=== PATIENT | female | born 1955 | race Caucasian/White ===

== ENCOUNTER 2022-01-14 10:40 | Observation (INO) ==
--- NOTE | 2022-01-14 11:26 | DR.DIARMA ---
HPI Time seen Time Seen by Provider: 01/14/22 11:25 PCP Primary Care Physician: SHANNAN FRANKLIN PA-C Complaint Chief Complaint Doctor Comments: diarrhea x 10 days. Has been treated as outpatient with flagyl but has not gotten better. Also, complains of severe cramping in lower abd prior to diarrhea episode. Chief Complaint:: PT C/O SEVERE MUCOUS LIKE DIARRHEA FOR MORE THAN 10 DAY ASSOCIATED WITH SEVERE CRAMPING PAIN ACROSS LOWER ABDOMEN THAT OCCURS JUST PRIOR TO BOWEL MOVEMENTS. DENIES FEVER. PT DID HAVE A FEW EPISODES OF NAUSE AND VOMITING WHEN SYMPTOMS FIRST STARTED BUT DENIES VOMITING IN SEVERAL DAYS. Self Treatment fo Chief Complaint: PT WAS TREATED WITH FLAGYL 500MG PO BID X 10 DAYS AND HAS COMPLETED 6 DAYS OF THIS TREATMENT. PT WAS ALSO TAKING BENTYL AND ZOFRAN NEEDED COVID-19 Coronavirus risk:travel/contact w/high risk person: No Has patient experienced Coronavirus symptoms: No Reviewed Nurses notes reviewed: Yes Source History Provided: Patient Mode of Arrival Mode of Arrival: Ambulatory Timing Onset of Chief Complaint: 01/14/22 PMH PMH Past Medical History: Yes Past Medical History Comment: LUPUS Past Surgical History: Yes Surgical History: Ortho Surgery Family History History of Family Medical Conditions: Yes Family Medical History: Cancer Social History Does patient currently use any type of tobacco product: No Have you used tobacco products in the last 12 months: No Type of Tobacco Use: None Does any household member use tobacco: No Alcohol Use: None Do you use any recreational Drugs:: No Lives With: Spouse Lives Where: Home Travel Risk Coronavirus risk:travel/contact w/high risk person: No Has patient experienced Coronavirus symptoms: No Infectious screening In the last 2 months have you had wt loss of >10#?: NO Have you had fever, night sweats or hemotysis?: No Have you traveled outside the country in the last 6 months?: No Isolation: Standard ROS Review of Systems Constitutional: No Symptoms Reported Eyes: No Symptoms Reported ENTM: No Symptoms Reported Respiratoy: No Symptoms Reported Cardiovascular: No Symptoms Reported Gastrointestinal/Abdominal: See HPI, Abdominal Pain and Diarrhea Genitourinary: No Symptoms Reported Neurological: No Symptoms Reported Musculoskeletal: No Symptoms Reported Integumentary: No Symptoms Reported Hematologic/Lymphatic: No Symptoms Reported Endocrine: No Symptoms Reported Psychiatric: No Symptoms Reported All Other Systems: Reviewed and Negative PE Vital Signs Vitals: Temperature 98.0 F Pulse Rate 107 Respiratory Rate 22 Blood Pressure 119/63 O2 Sat by Pulse Oximetry 98 General Limitations: No Limitations General Appearance: Alert Head Head Exam: Normal Inspection Eyes Eye exam: Normal Appearance ENT ENT Exam: Normal Exam Neck Neck Exam: Normal Inspection Chest Chest Inspection: Normal Inspection Respiratory Respiratory Exam: Normal Lung Sounds Bilat Cardiovascular Cardiovascular Exam: Regular Rate and Normal Rhythm Abdominal Exam Abdominal Exam: Soft, Tenderness and Hyperactive Bowel Sounds Abdominal Tenderness: Suprapubic Rectal Rectal: Deferred Genitourinary Scrotum: Deferred Hernia: Deferred Prostate: Deferred Extremeties Extremities Exam: Normal Inspection Back Back Exam: Normal Inspection Neurologic Neurological Exam: Alert and Oriented X3 Psychiatric Psychiatric Exam: Normal Affect and Normal Mood Skin Skin Exam: Warm, Dry, Intact and Normal Color MDM Differential Diagnosis Differential Diagnosis: Diarrhea Bacterial, Diarrhea Viral, Diverticular disease, Gastroenteritis and Inflammatory BD COURSE Treatment Treatment: Orders completed in ED. Dr. Anaya notified. Discussed case with him and agrees to admit for failed outpatient tx. Reevaluation 1st: Unchanged Consultation Call Returned: 12:59 Consultation Comments: Dr. Anaya Education/Counseling Education/Counseling: Patient and Counseling Educated On: Treatment, Diagnosis and Needs for Follow Up ROR Labs Reviewed Laboratory Results Reviewed?: Yes Result Diagrams: 01/18/22 05:23 01/18/22 05:23 Laboratory: 01/14/22 11:46 Urine,Clean Catch Urine Culture - Final Escherichia Coli Proteus Mirabilis 01/14/22 11:43 Stool Stool Culture - Final 01/14/22 11:43 Stool - Final WBC 11.5 X10^3/uL (3.6-10.0) H 01/14/22 11:11 RBC 5.03 X10^6/uL (3.5-5.4) 01/14/22 11:11 Hgb 13.9 g/dL (12.0-16.0) 01/14/22 11:11 Hct 41.0 % (36.0-47.0) 01/14/22 11:11 MCV 81.5 fL (80.0-100.0) 01/14/22 11:11 MCH 27.7 pg (27.0-34.0) 01/14/22 11:11 MCHC 34.0 g/dL (33.0-35.0) 01/14/22 11:11 RDW 14.8 % (11.6-16.5) 01/14/22 11:11 Plt Count 420 X10^3/uL (150.0-450.0) 01/14/22 11:11 MPV 8.6 fL (7.4-11.0) 01/14/22 11:11 Neut % (Auto) 73.7 % (42.0-75.0) 01/14/22 11:11 Lymph % (Auto) 18.1 % (21.0-51.0) L 01/14/22 11:11 [place] % (Auto) 6.9 % (0.0-13.0) 01/14/22 11:11 Eos % (Auto) 1.0 % (0.9-2.9) 01/14/22 11:11 Baso % (Auto) 0.3 % (0.2-1.0) 01/14/22 11:11 Neut # (Auto) 8.5 x10^3/uL (2.2-4.8) H 01/14/22 11:11 Lymph # (Auto) 2.1 X10^3/uL (1.3-2.9) 01/14/22 11:11 [place] # (Auto) 0.8 x10^3/uL (0.3-0.8) 01/14/22 11:11 Eos # (Auto) 0.1 x10^3/uL (0.0-0.2) 01/14/22 11:11 Baso # (Auto) 0.0 X10^3/uL (0.0-0.1) 01/14/22 11:11 Absolute Nucleated RBC 0.1 /100WBC 01/14/22 11:11 Sodium 138 mmol/L (136-145) 01/14/22 11:11 Corrected Sodium TNP 01/14/22 11:11 Potassium 2.3 mmol/L (3.5-5.1) L* 01/14/22 11:11 Chloride 99 mmol/L (98-107) 01/14/22 11:11 Carbon Dioxide 31.0 mmol/L (21-32) 01/14/22 11:11 BUN 7 mg/dL (7-18) 01/14/22 11:11 Creatinine 0.80 mg/dL (0.55-1.02) 01/14/22 11:11 Est GFR (MDRD) Af Amer > 60 (>60) 01/14/22 11:11 Est GFR (MDRD) Non-Af > 60 (>60) 01/14/22 11:11 Glucose 110 mg/dL (65-99) H 01/14/22 11:11 Calcium 8.4 mg/dL (8.5-10.1) L 01/14/22 11:11 Corrected Calcium 9.4 mg/dL (8.5-10.1) 01/14/22 11:11 Magnesium 1.8 mg/dL (1.7-2.9) 01/14/22 11:11 Total Bilirubin 0.50 mg/dL (0.2-1.0) 01/14/22 11:11 AST 30 Units/L (15-37) 01/14/22 11:11 ALT 22 Units/L (12-78) 01/14/22 11:11 Alkaline Phosphatase 109 Units/L (46-116) 01/14/22 11:11 Total Protein 7.3 g/dL (6.4-8.2) 01/14/22 11:11 Albumin 2.8 g/dL (3.4-5.0) L 01/14/22 11:11 Globulin 4.5 g/dL (2.5-4.5) 01/14/22 11:11 Albumin/Globulin Ratio 0.6 Ratio (1.1-2.1) L 01/14/22 11:11 Amylase 53 Units/L (25-115) 01/14/22 11:11 Lipase 222 Units/L (73-393) 01/14/22 11:11 Specimen Type Clean catch urine 01/14/22 11:46 Urine Color Dark yellow (YELLOW) 01/14/22 11:46 Urine Appearance Clear (CLEAR) 01/14/22 11:46 Urine pH 6.0 (5.0 - 8.0) 01/14/22 11:46 Ur Specific [place] 1.030 (1.000-1.030) 01/14/22 11:46 Urine Protein 2+ (NEGATIVE) 01/14/22 11:46 Urine Glucose (UA) Negative (NEGATIVE) 01/14/22 11:46 Urine Ketones 2+ (NEGATIVE) 01/14/22 11:46 Urine Blood 1+ (NEGATIVE) 01/14/22 11:46 Urine Nitrite Positive (NEGATIVE) 01/14/22 11:46 Urine Bilirubin 1+ (NEGATIVE) 01/14/22 11:46 Urine Urobilinogen 1+ (NORMAL) 01/14/22 11:46 Ur Leukocyte Esterase 3+ (NEGATIVE) 01/14/22 11:46 Urine RBC 0-2 /HPF (0-3) 01/14/22 11:46 Urine WBC 3-5 /HPF (0-5) 01/14/22 11:46 Ur Squamous Epith Cells Few /HPF (NEGATIVE) 01/14/22 11:46 Ur Transition Epith Cell Few /HPF (NEGATIVE) 01/14/22 11:46 Urine Bacteria Trace /HPF (NEGATIVE) 01/14/22 11:46 Hyaline Casts Few /LPF (NEGATIVE) 01/14/22 11:46 Urine Mucus Few /HPF (NEGATIVE) 01/14/22 11:46 Ur Culture Indicated? No/not indicated 01/14/22 11:46 Stool Description 15 grams 01/14/22 11:43 Stool Description 15 grams 01/14/22 11:43 Stl Occult Blood (IFOB) Positive (NEGATIVE) A 01/14/22 11:43 Stool for White Cells Positive (NEGATIVE) A 01/14/22 11:43 Stl C. diff Tox B Gene Negative (NEGATIVE) 01/14/22 11:43 Stl C. diff [id number] Presumptive negative (NEGATIVE) 01/14/22 11:43 Stool H. pylori Ag Negative (NEGATIVE) 01/14/22 11:43 SARS-CoV-2 (PCR) Positive (NEGATIVE) A 01/14/22 11:34 Cryptosporid parvum Ag Negative (NEGATIVE) 01/14/22 11:43 Giardia lamblia Ag Negative (NEGATIVE) 01/14/22 11:43 Influenza Type A (PCR) Negative (NEGATIVE) 01/14/22 11:34 Influenza Type B (PCR) Negative (NEGATIVE) 01/14/22 11:34 RSV (PCR) Negative (NEGATIVE) 01/14/22 11:34 Other Results Comments: Pt is noted to be Covid positive XRAY XRAY Interpreted by: Radiologist X-ray Results: Name: ELBERT STANTON : 1955 Sex: F Location: ER Order Number(s): [id number] Procedure(s):ABDOMEN/PELVIS W/O CON Ordering Physician: PRIYANKA GARIBAY Primary Care: Hernandez Cardozo Service Date: 01/14/22 Service Time: 1134 HISTORY LOWER ABDOMINAL PAIN STUDY ABDOMEN/PELVIS W/O CON COMPARISON TECHNIQUE Multiple axial images of the abdomen and pelvis were obtained from the lung bases to the pubic symphysis without the administration of IV contrast. Dose reduction techniques including Automated Exposure Control (AEC) and adjustment of mA and kV were utilized. FINDINGS Bases are clear without effusion. Size is normal. The liver and spleen are normal. There are questionably some stones in the gallbladder but no evidence for cholecystitis. Pancreas is somewhat atrophic. Adrenal glands are normal. Kidneys are both normal in size. There is a 4 mm nonobstructing stone in the upper pole of the right kidney. There is no stone on the left side and there is no hydronephrosis on either side. The urinary bladder is normal. There is a small hiatal hernia and the stomach is otherwise unremarkable. The small bowel loops are normal. The appendix is not visualized. The colon is quite redundant with the cecum extending over to the left lower quadrant. The right colon is quite filled and distended with stool raising concern for constipation. There is diverticular disease in the descending and sigmoid colon and there is some wall thickening throughout the sigmoid suggestive of diffuse diverticular may haynes. There is no abscess or free air. The uterus has been removed and there is no adnexal mass. There is scoliosis and degeneration in the spine and in the hips but there are no worrisome bone marrow lesions. IMPRESSION 1. There is diverticulosis in the distal colon and there is some nonspecific diffuse wall thickening in the sigmoid suggestive of low-grade diverticulitis. 2. There is a 4 mm nonobstructing stone in the right kidney. 3. Small hiatal hernia. 4. Possible cholelithiasis. Electronically signed by: Jeramy Singh (Jan 14, 2022 12:29:40) Report Electronically signed: 01/14/22 1231 CC: Priyanka Garibay EKG Rate: 69 [place]: Normal Rhythm: NSR Opioid Opioid Risk Tool Age (Evan box if 16-45): No History of Preadolescent Sexual Abuse: No Total: 0 Total Score Risk Category: Low Risk Copyright: Stanton ZELAYA predicting aberrant behaviors Discharge Plan Diagnosis Discharge Problem: Diverticulitis, Nausea vomiting and diarrhea, Infectious diarrhea in adult patient Discharge Plan Patient Disposition: 09 ADMITTED INPATIENT Condition: Stable Orders to Discharge Patient Discharge Orders: Discharge (Routine); Ordered 01/18/22 Ordered By: Marciano Anaya
[2022-01-14] MEDS ORDERED: NS 1,000 ML IV 1,000 ML IV ONE (11:33)
[2022-01-14] MEDS ORDERED: NS 1,000 ML IV 1,000 ML ONE (11:34)
[2022-01-14 11:44] LABS: BASOPHILS % (AUTO) 0.3 % (0.2-1.0); EOSINOPHILS # (AUTO) 0.1 x10^3/uL (0.0-0.2); HEMOGLOBIN 13.9 g/dL (12.0-16.0); LYMPHOCYTES # (AUTO) 2.1 X10^3/uL (1.3-2.9); LYMPHOCYTES % (AUTO) 18.1 % (21.0-51.0); MEAN CORPUSCULAR HEMOGLOBIN 27.7 pg (27.0-34.0); MEAN CORPUSCULAR VOLUME 81.5 fL (80.0-100.0); MEAN PLATELET VOLUME 8.6 fL (7.4-11.0); MONOCYTES # (AUTO) 0.8 x10^3/uL (0.3-0.8); MONOCYTES % (AUTO) 6.9 % (0.0-13.0); NEUTROPHILS # (AUTO) 8.5 x10^3/uL (2.2-4.8); NEUTROPHILS % (AUTO) 73.7 % (42.0-75.0); RED BLOOD COUNT 5.03 X10^6/uL (3.5-5.4); RED CELL DISTRIBUTION WIDTH 14.8 % (11.6-16.5); WHITE BLOOD COUNT 11.5 X10^3/uL (3.6-10.0)
[2022-01-14 11:53] LABS: ALANINE AMINOTRANSFERASE 22 Units/L (12-78); ALBUMIN 2.8 g/dL (3.4-5.0); ALKALINE PHOSPHATASE 109 Units/L (46-116); ASPARTATE AMINO TRANSFERASE 30 Units/L (15-37); BLOOD UREA NITROGEN 7 mg/dL (7-18); CALCIUM 8.4 mg/dL (8.5-10.1); CHLORIDE 99 mmol/L (98-107); COR CA(FOR HYPOALB) 9.4 mg/dL (8.5-10.1); SODIUM 138 mmol/L (136-145); TOTAL PROTEIN 7.3 g/dL (6.4-8.2); eGFR NON BLACK RACES > 60 (>60)
[2022-01-14 11:58] LABS: AMYLASE 53 Units/L (25-115); LIPASE 222 Units/L (73-393)
[2022-01-14 12:10] LABS: BILIRUBIN,URINE 1+ (NEGATIVE); BLOOD/HEMOGLOBIN,URINE 1+ (NEGATIVE); GLUCOSE, URINE NEGATIVE (NEGATIVE); KETONES,URINE 2+ (NEGATIVE); LEUKOCYTE ESTERASE ,URINE 3+ (NEGATIVE); NITRITES,URINE POSITIVE (NEGATIVE); PROTEIN,URINE 2+ (NEGATIVE); UROBILINOGEN,URINE 1+ (NORMAL)
[2022-01-14 12:24] LABS: APPEARANCE,URINE CLEAR (CLEAR); COLOR,URINE DARK YELLOW (YELLOW)
--- NOTE | 2022-01-14 12:31 | CT ---
HISTORYLOWER ABDOMINAL PAINSTUDYABDOMEN/PELVIS W/O CONCOMPARISONTECHNIQUEMultiple axial images of the abdomen and pelvis were obtained from the lung bases to the pubic symphysis without the administration of IV contrast. Dose reduction techniques including Automated Exposure Control (AEC) and adjustment of mA and kV were utilized.FINDINGSBases are clear without effusion. Size is normal. The liver and spleen are normal. There are questionably some stones in the gallbladder but no evidence for cholecystitis. Pancreas is somewhat atrophic. Adrenal glands are normal. Kidneys are both normal in size. There is a 4 mm nonobstructing stone in the upper pole of the right kidney. There is no stone on the left side and there is no hydronephrosis on either side. The urinary bladder is normal. There is a small hiatal hernia and the stomach is otherwise unremarkable. The small bowel loops are normal. The appendix is not visualized. The colon is quite redundant with the cecum extending over to the left lower quadrant. The right colon is quite filled and distended with stool raising concern for constipation. There is diverticular disease in the descending and sigmoid colon and there is some wall thickening throughout the sigmoid suggestive of diffuse diverticular may haynes. There is no abscess or free air. The uterus has been removed and there is no adnexal mass. There is scoliosis and degeneration in the spine and in the hips but there are no worrisome bone marrow lesions.IMPRESSION1. There is diverticulosis in the distal colon and there is some nonspecific diffuse wall thickening in the sigmoid suggestive of low-grade diverticulitis.2. There is a 4 mm nonobstructing stone in the right kidney.3. Small hiatal hernia.4. Possible cholelithiasis.Electronically signed by: Jeramy Singh (Jan 14, 2022 12:29:40)
[2022-01-14 12:36] LABS: RBC,URINE 0-2 /HPF (0-3); SQUAMOUS EPITHELIAL CELL,UR FEW /HPF (NEGATIVE)
[2022-01-14 12:37] LABS: BACTERIA,URINE TRACE /HPF (NEGATIVE); HYALINE CASTS, URINE FEW /LPF (NEGATIVE); TRANSITIONAL EPI CELLS,URINE FEW /HPF (NEGATIVE)
[2022-01-14] MEDS ORDERED: NS 1/2 + KCL 20 MEQ/L 1,000 ML IV ONE (13:23)
[2022-01-14] MEDS ORDERED: FLAGYL TAB 250 MG PO ONE (13:24)
[2022-01-14] MEDS ORDERED: NS + KCL 20 MEQ/L 1,000 ML IV ONE (13:25)
[2022-01-14] MEDS: FLAGYL TAB 500 MG PO SCH ×2 (13:32→21:01)
[2022-01-14 13:40] LABS: CRYPTOSPORIDIUM PARVUM ANTIGEN NEGATIVE (NEGATIVE); GIARDIA LAMBLIA ANTIGEN NEGATIVE (NEGATIVE)
[2022-01-14 15:11] VITALS: BMI 37.1
[2022-01-14] MEDS ORDERED: MORPHINE SULFATE INJ 2 MG INJ IVP PRN (15:11)
[2022-01-14] MEDS ORDERED: ZOFRAN INJ 4 MG VIAL IVP PRN (15:11)
[2022-01-14] MEDS ORDERED: MICRO K EXTEN CAP 10 MEQ PO PRN (16:27)
[2022-01-14] MEDS ORDERED: KLOR-CON PO PRN (16:27)
[2022-01-14] MEDS ORDERED: K-RIDER 10 MEQ/NS 100 ML 10 MEQ/100 ML BAG IV PRN (16:27)
[2022-01-14] MEDS: NS + KCL 20 MEQ/L 1,000 ML IV SCH (18:18)
[2022-01-14] MEDS: MAGNESIUM SULFATE 1 GRAM/100 mL PREMIX 1 G/100 ML BAG IV PRN ×2 (18:18→20:27)
[2022-01-14] MEDS: K-DUR TAB 20 MEQ PO PRN (18:18)
[2022-01-14] MEDS: CIPRO IV 200 MG PREMIX* 200 MG/100 ML BAG IV SCH (21:38)
[2022-01-15] MEDS: NS + KCL 20 MEQ/L 1,000 ML IV SCH (02:00)
[2022-01-15] MEDS ORDERED: CATAPRES TAB 0.1 MG PO ONE (04:17)
[2022-01-15] MEDS: FLAGYL TAB 500 MG PO SCH ×3 (05:38→21:07)
[2022-01-15 05:59] LABS: BASOPHILS % (AUTO) 0.3 % (0.2-1.0); EOSINOPHILS # (AUTO) 0.1 x10^3/uL (0.0-0.2); EOSINOPHILS % (AUTO) 0.6 % (0.9-2.9); HEMATOCRIT 37.7 % (36.0-47.0); HEMOGLOBIN 12.6 g/dL (12.0-16.0); LYMPHOCYTES # (AUTO) 1.7 X10^3/uL (1.3-2.9); LYMPHOCYTES % (AUTO) 16.5 % (21.0-51.0); MEAN CORPUSCULAR HEMOGLOBIN 27.1 pg (27.0-34.0); MEAN CORPUSCULAR HGB CONC 33.3 g/dL (33.0-35.0); MEAN CORPUSCULAR VOLUME 81.3 fL (80.0-100.0); MEAN PLATELET VOLUME 8.5 fL (7.4-11.0); MONOCYTES # (AUTO) 0.9 x10^3/uL (0.3-0.8); MONOCYTES % (AUTO) 8.8 % (0.0-13.0); NEUTROPHILS # (AUTO) 7.4 x10^3/uL (2.2-4.8); NEUTROPHILS % (AUTO) 73.8 % (42.0-75.0); RED BLOOD COUNT 4.64 X10^6/uL (3.5-5.4); WHITE BLOOD COUNT 10.1 X10^3/uL (3.6-10.0)
[2022-01-15 06:12] LABS: ALANINE AMINOTRANSFERASE 18 Units/L (12-78); ALBUMIN 2.4 g/dL (3.4-5.0); ALKALINE PHOSPHATASE 92 Units/L (46-116); ASPARTATE AMINO TRANSFERASE 27 Units/L (15-37); BLOOD UREA NITROGEN 5 mg/dL (7-18); CALCIUM 7.9 mg/dL (8.5-10.1); CARBON DIOXIDE 26.9 mmol/L (21-32); CHLORIDE 102 mmol/L (98-107); COR CA(FOR HYPOALB) 9.2 mg/dL (8.5-10.1); CREATININE 0.54 mg/dL (0.55-1.02); SODIUM 139 mmol/L (136-145); TOTAL PROTEIN 6.3 g/dL (6.4-8.2); eGFR NON BLACK RACES > 60 (>60)
[2022-01-15] MEDS: K-DUR TAB 20 MEQ PO PRN ×2 (06:30→23:15)
[2022-01-15] MEDS: CIPRO IV 200 MG PREMIX* 200 MG/100 ML BAG IV SCH (09:13)
[2022-01-15] MEDS: NS + KCL 40 MEQ/L 1,000 ML IV SCH ×3 (11:01→20:32)
[2022-01-15] MEDS: LOVENOX INJ 40 MG SYR SC SCH (11:01)
--- NOTE | 2022-01-15 11:04 | DR.H&P ---
H&P History & Physical for Day of: H&P Date: 01/15/22 Chief Complaint Chief Complaint: abdominal pain, N/V/D Allergies Allergies Allergy/AdvReac Type Severity Reaction Status Date / Time codeine Allergy Verified 01/14/22 10:58 History of Present Illness History of Present Illness: Ms Xiao is a 66y/o female with a PMH of Lupus and osteoporosis presents with worsening abdominal cramps associated with nausea, vomiting and diarrhea for the past 10 days. Patient reports poor oral intake since then. She has bee having watery stools with no blood. Denies hx of abdomin al problems in the past, no colonoscopy. In the ER, CTAP showed low grade diverticulitis. UA suggestive of infection. Her potassium was noted to be low. She was started on IV Cipro and Flagyl along with hydration and potassium replacement. She states she feels better this morning. She has been able to tolerate liquids. Labs/imaging reviewed: K-2.9 Mg 2.2 FOBT + Fecal WBC + Urine cx: gram (-) rods Stool Cx: negative Plan: will change IVF to NS with 40 KCl, continue potassium protocol and monitoring. Continue Cipro and Flagyl. Continue anti-emetics. Advance diet as tolerated. Follow urine Cx. Encouraged to ambulate as tolerated. Monitor AM labs. Past Surgical History Surgical History: Ortho Surgery Family History Family Medical History: Cancer Social History Does patient currently use any type of tobacco product: No Have you used tobacco products in the last 12 months: No Type of Tobacco Use: None Does any household member use tobacco: No Alcohol Use: None Drug Use: None Medications Home Medications: codeine Allergy (Verified 01/14/22 10:58) CONTINUE taking the following medications cholecalciferol (vitamin D3) 25 mcg (1,000 unit) tablet 25 mcg PO DAILY 01/14/22 [History] dicyclomine 10 mg capsule 10 mg PO Q4H PRN 01/14/22 [History] hydroxychloroquine 200 mg tablet 300 mg PO DAILY 01/14/22 [History] ibandronate 150 mg tablet See Rx Instructions .Route .COMPLEX 01/14/22 [History] meloxicam 15 mg tablet 15 mg PO DAILY 01/14/22 [History] metronidazole 500 mg tablet 500 mg PO BID 01/14/22 [History] ondansetron 8 mg disintegrating tablet 8 mg PO Q8H PRN 01/14/22 [History] tirzepatide 2.5 mg/0.5 mL subcutaneous pen injector ([place]) See Rx Instructions .Route .COMPLEX 01/14/22 [History] Labs Result Diagrams: 01/15/22 05:09 01/15/22 09:40 Labs: 01/14/22 11:46 Urine,Clean Catch Urine Culture - Preliminary 01/14/22 11:43 Stool Stool Culture - Preliminary 01/14/22 11:43 Stool - Final Laboratory WBC 10.1 X10^3/uL (3.6-10.0) H 01/15/22 05:09 RBC 4.64 X10^6/uL (3.5-5.4) 01/15/22 05:09 Hgb 12.6 g/dL (12.0-16.0) 01/15/22 05:09 Hct 37.7 % (36.0-47.0) 01/15/22 05:09 MCV 81.3 fL (80.0-100.0) 01/15/22 05:09 MCH 27.1 pg (27.0-34.0) 01/15/22 05:09 MCHC 33.3 g/dL (33.0-35.0) 01/15/22 05:09 RDW 15.0 % (11.6-16.5) 01/15/22 05:09 Plt Count 358 X10^3/uL (150.0-450.0) 01/15/22 05:09 MPV 8.5 fL (7.4-11.0) 01/15/22 05:09 Neut % (Auto) 73.8 % (42.0-75.0) 01/15/22 05:09 Lymph % (Auto) 16.5 % (21.0-51.0) L 01/15/22 05:09 [place] % (Auto) 8.8 % (0.0-13.0) 01/15/22 05:09 Eos % (Auto) 0.6 % (0.9-2.9) L 01/15/22 05:09 Baso % (Auto) 0.3 % (0.2-1.0) 01/15/22 05:09 Neut # (Auto) 7.4 x10^3/uL (2.2-4.8) H 01/15/22 05:09 Lymph # (Auto) 1.7 X10^3/uL (1.3-2.9) 01/15/22 05:09 [place] # (Auto) 0.9 x10^3/uL (0.3-0.8) H 01/15/22 05:09 Eos # (Auto) 0.1 x10^3/uL (0.0-0.2) 01/15/22 05:09 Baso # (Auto) 0.0 X10^3/uL (0.0-0.1) 01/15/22 05:09 Absolute Nucleated RBC 0.0 /100WBC 01/15/22 05:09 Sodium 139 mmol/L (136-145) 01/15/22 05:09 Corrected Sodium TNP 01/15/22 05:09 Potassium 2.9 mmol/L (3.5-5.1) L* 01/15/22 09:40 Chloride 102 mmol/L (98-107) 01/15/22 05:09 Carbon Dioxide 26.9 mmol/L (21-32) 01/15/22 05:09 BUN 5 mg/dL (7-18) L 01/15/22 05:09 Creatinine 0.54 mg/dL (0.55-1.02) L 01/15/22 05:09 Est GFR (MDRD) Af Amer > 60 (>60) 01/15/22 05:09 Est GFR (MDRD) Non-Af > 60 (>60) 01/15/22 05:09 Glucose 95 mg/dL (65-99) 01/15/22 05:09 Calcium 7.9 mg/dL (8.5-10.1) L 01/15/22 05:09 Corrected Calcium 9.2 mg/dL (8.5-10.1) 01/15/22 05:09 Magnesium 2.2 mg/dL (1.7-2.9) 01/15/22 05:09 Total Bilirubin 0.40 mg/dL (0.2-1.0) 01/15/22 05:09 AST 27 Units/L (15-37) 01/15/22 05:09 ALT 18 Units/L (12-78) 01/15/22 05:09 Alkaline Phosphatase 92 Units/L (46-116) 01/15/22 05:09 Total Protein 6.3 g/dL (6.4-8.2) L 01/15/22 05:09 Albumin 2.4 g/dL (3.4-5.0) L 01/15/22 05:09 Globulin 3.9 g/dL (2.5-4.5) 01/15/22 05:09 Albumin/Globulin Ratio 0.6 Ratio (1.1-2.1) L 01/15/22 05:09 Amylase 53 Units/L (25-115) 01/14/22 11:11 Lipase 222 Units/L (73-393) 01/14/22 11:11 Specimen Type Clean catch urine 01/14/22 11:46 Urine Color Dark yellow (YELLOW) 01/14/22 11:46 Urine Appearance Clear (CLEAR) 01/14/22 11:46 Urine pH 6.0 (5.0 - 8.0) 01/14/22 11:46 Ur Specific [place] 1.030 (1.000-1.030) 01/14/22 11:46 Urine Protein 2+ (NEGATIVE) 01/14/22 11:46 Urine Glucose (UA) Negative (NEGATIVE) 01/14/22 11:46 Urine Ketones 2+ (NEGATIVE) 01/14/22 11:46 Urine Blood 1+ (NEGATIVE) 01/14/22 11:46 Urine Nitrite Positive (NEGATIVE) 01/14/22 11:46 Urine Bilirubin 1+ (NEGATIVE) 01/14/22 11:46 Urine Urobilinogen 1+ (NORMAL) 01/14/22 11:46 Ur Leukocyte Esterase 3+ (NEGATIVE) 01/14/22 11:46 Urine RBC 0-2 /HPF (0-3) 01/14/22 11:46 Urine WBC 3-5 /HPF (0-5) 01/14/22 11:46 Ur Squamous Epith Cells Few /HPF (NEGATIVE) 01/14/22 11:46 Ur Transition Epith Cell Few /HPF (NEGATIVE) 01/14/22 11:46 Urine Bacteria Trace /HPF (NEGATIVE) 01/14/22 11:46 Hyaline Casts Few /LPF (NEGATIVE) 01/14/22 11:46 Urine Mucus Few /HPF (NEGATIVE) 01/14/22 11:46 Ur Culture Indicated? No/not indicated 01/14/22 11:46 Stool Description 15 grams 01/14/22 11:43 Stool Description 15 grams 01/14/22 11:43 Stl Occult Blood (IFOB) Positive (NEGATIVE) A 01/14/22 11:43 Stool for White Cells Positive (NEGATIVE) A 01/14/22 11:43 Stl C. diff Tox B Gene Negative (NEGATIVE) 01/14/22 11:43 Stl C. diff [id number] Presumptive negative (NEGATIVE) 01/14/22 11:43 Stool H. pylori Ag Negative (NEGATIVE) 01/14/22 11:43 SARS-CoV-2 (PCR) Positive (NEGATIVE) A 01/14/22 11:34 Cryptosporid parvum Ag Negative (NEGATIVE) 01/14/22 11:43 Giardia lamblia Ag Negative (NEGATIVE) 01/14/22 11:43 Influenza Type A (PCR) Negative (NEGATIVE) 01/14/22 11:34 Influenza Type B (PCR) Negative (NEGATIVE) 01/14/22 11:34 RSV (PCR) Negative (NEGATIVE) 01/14/22 11:34 Review of Systems Constitutional: No Symptoms Reported Eyes: No Symptoms Reported ENT: No Symptoms Reported Respiratory: No Symptoms Reported Cardiovascular: No Symptoms Reported Gastrointestinal: Nausea, Vomiting, Abdominal Pain and Diarrhea Genitourinary: No Symptoms Reported Musculoskeletal: No Symptoms Reported Skin: No Symptoms Reported Neurological: No Symptoms Reported Physical Exam Vital Signs: Temperature 99.4 F Pulse Rate [Left Brachial] 68 Pulse Rate 107 Respiratory Rate 20 Blood Pressure [Left Arm] 142/78 Blood Pressure 119/63 O2 Sat by Pulse Oximetry 96 Oriented: Normal Eyes: Normal Ear: Normal Nose: Normal Throat: Normal Respiratory: Clear Throughout Cardiovascular: Normal Auscultation: Bowel Sounds: Increased Tenderness: Epigastric, Periumbilical and Mild Skin: Decreased [place] Musculoskeletal: Normal Psychiatric: Normal Mood Description: Calm and Appropriate Affect: Normal Speech Pattern: Clear and Appropriate Assessment/Plan (1) Diverticulitis: Status: Acute (2) Hypokalemia: Status: Acute (3) Dehydration: Status: Acute (4) Generalized weakness: Status: Acute (5) Nausea vomiting and diarrhea: Status: Acute (6) Urinary tract infection: Status: Acute (7) Lupus: Status: Acute Review H&P Reviewed: Yes Patient was examined?: Yes
[2022-01-15] MEDS: CIPRO IV 400 MG PREMIX* 400 MG/200 ML IV.SOLN. IV SCH (20:34)
[2022-01-16] MEDS: NS + KCL 40 MEQ/L 1,000 ML IV SCH ×3 (04:54→17:17)
[2022-01-16] MEDS: FLAGYL TAB 500 MG PO SCH ×3 (05:24→21:16)
[2022-01-16 06:35] LABS: BASOPHILS # (AUTO) 0.1 X10^3/uL (0.0-0.1); BASOPHILS % (AUTO) 0.4 % (0.2-1.0); EOSINOPHILS # (AUTO) 0.1 x10^3/uL (0.0-0.2); EOSINOPHILS % (AUTO) 0.8 % (0.9-2.9); HEMATOCRIT 36.6 % (36.0-47.0); HEMOGLOBIN 12.3 g/dL (12.0-16.0); LYMPHOCYTES # (AUTO) 1.7 X10^3/uL (1.3-2.9); LYMPHOCYTES % (AUTO) 13.3 % (21.0-51.0); MEAN CORPUSCULAR HEMOGLOBIN 27.2 pg (27.0-34.0); MEAN CORPUSCULAR HGB CONC 33.6 g/dL (33.0-35.0); MEAN CORPUSCULAR VOLUME 80.9 fL (80.0-100.0); MEAN PLATELET VOLUME 8.9 fL (7.4-11.0); MONOCYTES % (AUTO) 7.6 % (0.0-13.0); NEUTROPHILS # (AUTO) 9.9 x10^3/uL (2.2-4.8); NEUTROPHILS % (AUTO) 77.9 % (42.0-75.0); RED BLOOD COUNT 4.53 X10^6/uL (3.5-5.4); RED CELL DISTRIBUTION WIDTH 15.1 % (11.6-16.5); WHITE BLOOD COUNT 12.8 X10^3/uL (3.6-10.0)
[2022-01-16 06:46] LABS: ALANINE AMINOTRANSFERASE 19 Units/L (12-78); ALBUMIN 2.4 g/dL (3.4-5.0); ALKALINE PHOSPHATASE 95 Units/L (46-116); ASPARTATE AMINO TRANSFERASE 26 Units/L (15-37); BLOOD UREA NITROGEN 3 mg/dL (7-18); CALCIUM 7.9 mg/dL (8.5-10.1); CARBON DIOXIDE 27.4 mmol/L (21-32); CHLORIDE 103 mmol/L (98-107); COR CA(FOR HYPOALB) 9.2 mg/dL (8.5-10.1); CREATININE 0.56 mg/dL (0.55-1.02); MAGNESIUM 1.7 mg/dL (1.7-2.9); SODIUM 138 mmol/L (136-145); TOTAL PROTEIN 6.2 g/dL (6.4-8.2); eGFR NON BLACK RACES > 60 (>60)
[2022-01-16 07:30] LABS: PLATELET MORPHOLOGY COMMENT NORMAL (NORMAL)
[2022-01-16] MEDS: CIPRO IV 400 MG PREMIX* 400 MG/200 ML IV.SOLN. IV SCH ×2 (08:37→20:30)
[2022-01-16] MEDS: LOVENOX INJ 40 MG SYR SC SCH (08:37)
--- NOTE | 2022-01-16 09:14 | PCM.PROG ---
Progress Note Progress Note for Day of Date of Exam: 01/16/22 Subjective Subjective: Pt is a 66 y/o female with a PMH of Lupus and osteoporosis admitted for low grade diverticulitis shown on CTAP and acute cystitis. This morning patient reports feeling a little better. No acute events overnight. Her potassium has responded to IVF and supplementation. She is currently on anti biotics: IV Cipro and Flagyl. She has been able to tolerate liquids. Labs/imaging reviewed: Wbc 12.8, Hgb 12.3, Plt 369, Na 138, K 3.8, Creatinine 0.56, Glucose 96 Urine cx: gram (-) rods Stool Cx: negative Plan: Will continue with current treatment plan of IVF to NS with 40 KCl, contin ue potassium protocol and monitoring. Continue Cipro and Flagyl. Continue anti- emetics. Advance diet as tolerated. Follow urine Cx. Encouraged to ambulate as tolerated. Monitor AM labs. Past Medical Family Social History Allergies: Allergies codeine Allergy (Verified 01/14/22 10:58) Review of Systems ROS: No change since H&P Vital Signs and I&O's Vital Signs: Temperature 99.0 F Pulse Rate [Left Brachial] 96 Pulse Rate 107 Respiratory Rate 20 Blood Pressure [Left Arm] 156/86 Blood Pressure 119/63 O2 Sat by Pulse Oximetry 98 Intake and Output: Intake & Output 01/13/22 01/14/22 01/15/22 01/16/22 23:59 23:59 23:59 23:59 Intake Total 796 / 796 4090 / 4090 1340 / 1340 Balance 796 / 796 4090 / 4090 1340 / 1340 Physical Exam Oriented: Normal Eyes: Normal Ear: Normal Nose: Normal Throat: Normal Cardiovascular: Normal Auscultation: Bowel Sounds: Increased Tenderness: Epigastric, Periumbilical and Mild Skin: Decreased [place]urgur Musculoskeletal: Normal Psychiatric: Normal Mood Description: Calm and Appropriate Affect: Normal Speech Pattern: Clear and Appropriate Laboratory and Diagnostics Result Diagrams: 01/16/22 05:28 01/16/22 05:28 Labs: 01/14/22 11:46 Urine,Clean Catch Urine Culture - Preliminary 01/14/22 11:43 Stool Stool Culture - Preliminary 01/14/22 11:43 Stool - Final Laboratory WBC 12.8 X10^3/uL (3.6-10.0) H 01/16/22 05:28 RBC 4.53 X10^6/uL (3.5-5.4) 01/16/22 05:28 Hgb 12.3 g/dL (12.0-16.0) 01/16/22 05:28 Hct 36.6 % (36.0-47.0) 01/16/22 05:28 MCV 80.9 fL (80.0-100.0) 01/16/22 05:28 MCH 27.2 pg (27.0-34.0) 01/16/22 05:28 MCHC 33.6 g/dL (33.0-35.0) 01/16/22 05:28 RDW 15.1 % (11.6-16.5) 01/16/22 05:28 Plt Count 369 X10^3/uL (150.0-450.0) 01/16/22 05:28 Plt Count Comment Adequate (ADEQUATE) 01/16/22 05:28 MPV 8.9 fL (7.4-11.0) 01/16/22 05:28 Neut % (Auto) 77.9 % (42.0-75.0) H 01/16/22 05:28 Lymph % (Auto) 13.3 % (21.0-51.0) L 01/16/22 05:28 [place] % (Auto) 7.6 % (0.0-13.0) 01/16/22 05:28 Eos % (Auto) 0.8 % (0.9-2.9) L 01/16/22 05:28 Baso % (Auto) 0.4 % (0.2-1.0) 01/16/22 05:28 Neut # (Auto) 9.9 x10^3/uL (2.2-4.8) H 01/16/22 05:28 Lymph # (Auto) 1.7 X10^3/uL (1.3-2.9) 01/16/22 05:28 [place] # (Auto) 1.0 x10^3/uL (0.3-0.8) H 01/16/22 05:28 Eos # (Auto) 0.1 x10^3/uL (0.0-0.2) 01/16/22 05:28 Baso # (Auto) 0.1 X10^3/uL (0.0-0.1) 01/16/22 05:28 Absolute Nucleated RBC 0.1 /100WBC 01/16/22 05:28 Total Counted 100 01/16/22 05:28 Neutrophils % (Manual) 69 % (39-76) 01/16/22 05:28 Lymphocytes % (Manual) 21 % (13-43) 01/16/22 05:28 Monocytes % (Manual) 6 % (4-9) 01/16/22 05:28 Eosinophils % (Manual) 4 % (0-6) 01/16/22 05:28 Plt Morphology Comment Normal (NORMAL) 01/16/22 05:28 RBC Morphology Normal (NORMAL) 01/16/22 05:28 Sodium 138 mmol/L (136-145) 01/16/22 05:28 Corrected Sodium TNP 01/16/22 05:28 Potassium 3.8 mmol/L (3.5-5.1) 01/16/22 05:28 Chloride 103 mmol/L (98-107) 01/16/22 05:28 Carbon Dioxide 27.4 mmol/L (21-32) 01/16/22 05:28 BUN 3 mg/dL (7-18) L 01/16/22 05:28 Creatinine 0.56 mg/dL (0.55-1.02) 01/16/22 05:28 Est GFR (MDRD) Af Amer > 60 (>60) 01/16/22 05:28 Est GFR (MDRD) Non-Af > 60 (>60) 01/16/22 05:28 Glucose 96 mg/dL (65-99) 01/16/22 05:28 Calcium 7.9 mg/dL (8.5-10.1) L 01/16/22 05:28 Corrected Calcium 9.2 mg/dL (8.5-10.1) 01/16/22 05:28 Magnesium 1.7 mg/dL (1.7-2.9) 01/16/22 05:28 Total Bilirubin 0.40 mg/dL (0.2-1.0) 01/16/22 05:28 AST 26 Units/L (15-37) 01/16/22 05:28 ALT 19 Units/L (12-78) 01/16/22 05:28 Alkaline Phosphatase 95 Units/L (46-116) 01/16/22 05:28 Total Protein 6.2 g/dL (6.4-8.2) L 01/16/22 05:28 Albumin 2.4 g/dL (3.4-5.0) L 01/16/22 05:28 Globulin 3.8 g/dL (2.5-4.5) 01/16/22 05:28 Albumin/Globulin Ratio 0.6 Ratio (1.1-2.1) L 01/16/22 05:28 Amylase 53 Units/L (25-115) 01/14/22 11:11 Lipase 222 Units/L (73-393) 01/14/22 11:11 Specimen Type Clean catch urine 01/14/22 11:46 Urine Color Dark yellow (YELLOW) 01/14/22 11:46 Urine Appearance Clear (CLEAR) 01/14/22 11:46 Urine pH 6.0 (5.0 - 8.0) 01/14/22 11:46 Ur Specific [place] 1.030 (1.000-1.030) 01/14/22 11:46 Urine Protein 2+ (NEGATIVE) 01/14/22 11:46 Urine Glucose (UA) Negative (NEGATIVE) 01/14/22 11:46 Urine Ketones 2+ (NEGATIVE) 01/14/22 11:46 Urine Blood 1+ (NEGATIVE) 01/14/22 11:46 Urine Nitrite Positive (NEGATIVE) 01/14/22 11:46 Urine Bilirubin 1+ (NEGATIVE) 01/14/22 11:46 Urine Urobilinogen 1+ (NORMAL) 01/14/22 11:46 Ur Leukocyte Esterase 3+ (NEGATIVE) 01/14/22 11:46 Urine RBC 0-2 /HPF (0-3) 01/14/22 11:46 Urine WBC 3-5 /HPF (0-5) 01/14/22 11:46 Ur Squamous Epith Cells Few /HPF (NEGATIVE) 01/14/22 11:46 Ur Transition Epith Cell Few /HPF (NEGATIVE) 01/14/22 11:46 Urine Bacteria Trace /HPF (NEGATIVE) 01/14/22 11:46 Hyaline Casts Few /LPF (NEGATIVE) 01/14/22 11:46 Urine Mucus Few /HPF (NEGATIVE) 01/14/22 11:46 Ur Culture Indicated? No/not indicated 01/14/22 11:46 Stool Description 15 grams 01/14/22 11:43 Stool Description 15 grams 01/14/22 11:43 Stl Occult Blood (IFOB) Positive (NEGATIVE) A 01/14/22 11:43 Stool for White Cells Positive (NEGATIVE) A 01/14/22 11:43 Stl C. diff Tox B Gene Negative (NEGATIVE) 01/14/22 11:43 Stl C. diff [id number] Presumptive negative (NEGATIVE) 01/14/22 11:43 Stool H. pylori Ag Negative (NEGATIVE) 01/14/22 11:43 SARS-CoV-2 (PCR) Positive (NEGATIVE) A 01/14/22 11:34 Cryptosporid parvum Ag Negative (NEGATIVE) 01/14/22 11:43 Giardia lamblia Ag Negative (NEGATIVE) 01/14/22 11:43 Influenza Type A (PCR) Negative (NEGATIVE) 01/14/22 11:34 Influenza Type B (PCR) Negative (NEGATIVE) 01/14/22 11:34 RSV (PCR) Negative (NEGATIVE) 01/14/22 11:34 Plan (1) Diverticulitis: Status: Acute Narrative Support Text: Continue antibiotics:Cipro and Flagyl (2) Hypokalemia: Status: Acute Narrative Support Text: Replete per protocol (3) Dehydration: Status: Acute Narrative Support Text: IVF (4) Generalized weakness: Status: Acute (5) Nausea vomiting and diarrhea: Status: Acute (6) Urinary tract infection: Status: Acute (7) Lupus: Status: Acute
[2022-01-16] MEDS: MAGNESIUM SULFATE 1 GRAM/100 mL PREMIX 1 G/100 ML BAG IV PRN ×2 (18:42→23:25)
[2022-01-17] MEDS: NS + KCL 40 MEQ/L 1,000 ML IV SCH ×4 (05:48→21:24)
[2022-01-17] MEDS: FLAGYL TAB 500 MG PO SCH ×3 (05:49→21:24)
[2022-01-17] MEDS ORDERED: NORVASC TAB 5 MG PO SCH (09:00)
[2022-01-17 09:03] LABS: BASOPHILS # (AUTO) 0.1 X10^3/uL (0.0-0.1); BASOPHILS % (AUTO) 0.6 % (0.2-1.0); EOSINOPHILS # (AUTO) 0.1 x10^3/uL (0.0-0.2); EOSINOPHILS % (AUTO) 1.2 % (0.9-2.9); HEMATOCRIT 40.4 % (36.0-47.0); HEMOGLOBIN 13.7 g/dL (12.0-16.0); LYMPHOCYTES # (AUTO) 2.1 X10^3/uL (1.3-2.9); LYMPHOCYTES % (AUTO) 19.7 % (21.0-51.0); MEAN CORPUSCULAR HEMOGLOBIN 27.7 pg (27.0-34.0); MEAN CORPUSCULAR VOLUME 81.5 fL (80.0-100.0); MEAN PLATELET VOLUME 8.1 fL (7.4-11.0); MONOCYTES # (AUTO) 0.9 x10^3/uL (0.3-0.8); MONOCYTES % (AUTO) 8.9 % (0.0-13.0); NEUTROPHILS # (AUTO) 7.2 x10^3/uL (2.2-4.8); NEUTROPHILS % (AUTO) 69.6 % (42.0-75.0); RED BLOOD COUNT 4.96 X10^6/uL (3.5-5.4); RED CELL DISTRIBUTION WIDTH 15.2 % (11.6-16.5); WHITE BLOOD COUNT 10.4 X10^3/uL (3.6-10.0)
[2022-01-17 09:16] LABS: ALANINE AMINOTRANSFERASE 22 Units/L (12-78); ALBUMIN 2.8 g/dL (3.4-5.0); ALKALINE PHOSPHATASE 107 Units/L (46-116); ASPARTATE AMINO TRANSFERASE 28 Units/L (15-37); BLOOD UREA NITROGEN 3 mg/dL (7-18); CALCIUM 8.4 mg/dL (8.5-10.1); CARBON DIOXIDE 28.6 mmol/L (21-32); CHLORIDE 105 mmol/L (98-107); COR CA(FOR HYPOALB) 9.4 mg/dL (8.5-10.1); COR NA(FOR HYPERGLY) 139 mmol/L (136-145); CREATININE 0.68 mg/dL (0.55-1.02); SODIUM 139 mmol/L (136-145); TOTAL PROTEIN 6.9 g/dL (6.4-8.2); eGFR NON BLACK RACES > 60 (>60)
[2022-01-17] MEDS: CIPRO IV 400 MG PREMIX* 400 MG/200 ML IV.SOLN. IV SCH ×2 (09:25→20:18)
[2022-01-17] MEDS: LOVENOX INJ 40 MG SYR SC SCH (09:26)
--- NOTE | 2022-01-17 19:48 | PCM.PROG ---
Progress Note Progress Note for Day of Date of Exam: 01/17/22 Subjective Subjective: Pt is a 66 y/o female with a PMH of Lupus and osteoporosis admitted for low grade diverticulitis shown on CTAP and acute cystitis. This morning patient reports improvement in her abdominal pain. She does feel significantly better compared to yesterday. No acute events overnight. She is currently on antibiotics: IV Cipro and Flagyl. She has been able to tolerate diet. Labs/imaging reviewed: Wbc 10.4, Hgb 13.7, Plt 410, Na 139, K 4.0, Creatinine 0.68, Glucose 112 Urine cx: E. coli, Proteus mirabilis Stool Cx: negative Plan: Will continue with current treatment plan. Continue Cipro and Flagyl. Continue anti-emetics. Advance diet as tolerated. Pt has been hypertensive, will start on norvasc. Encouraged to ambulate as tolerated. Monitor AM labs. Past Medical Family Social History Allergies: Allergies codeine Allergy (Verified 01/14/22 10:58) Review of Systems ROS: No change since H&P Vital Signs and I&O's Vital Signs: Temperature 98.2 F Pulse Rate [Left Brachial] 90 Pulse Rate 107 Respiratory Rate 18 Blood Pressure [Left Arm] 151/73 Blood Pressure 119/63 O2 Sat by Pulse Oximetry 98 Intake and Output: Intake & Output 01/14/22 01/15/22 01/16/22 01/17/22 23:59 23:59 23:59 23:59 Intake Total 796 / 796 4090 / 4090 3489 / 3489 2291 / 2291 Balance 796 / 796 4090 / 4090 3489 / 3489 2291 / 2291 Physical Exam Oriented: Normal Eyes: Normal Ear: Normal Nose: Normal Throat: Normal Cardiovascular: Normal Auscultation: Bowel Sounds: Increased Tenderness: LLQ and Mild Skin: Decreased [place]urgur Musculoskeletal: Normal Psychiatric: Normal Mood Description: Calm and Appropriate Affect: Normal Speech Pattern: Clear and Appropriate Laboratory and Diagnostics Result Diagrams: 01/17/22 08:50 01/17/22 08:50 Labs: 01/14/22 11:46 Urine,Clean Catch Urine Culture - Final Escherichia Coli Proteus Mirabilis 01/14/22 11:43 Stool Stool Culture - Final 01/14/22 11:43 Stool - Final Laboratory WBC 10.4 X10^3/uL (3.6-10.0) H 01/17/22 08:50 RBC 4.96 X10^6/uL (3.5-5.4) 01/17/22 08:50 Hgb 13.7 g/dL (12.0-16.0) 01/17/22 08:50 Hct 40.4 % (36.0-47.0) 01/17/22 08:50 MCV 81.5 fL (80.0-100.0) 01/17/22 08:50 MCH 27.7 pg (27.0-34.0) 01/17/22 08:50 MCHC 34.0 g/dL (33.0-35.0) 01/17/22 08:50 RDW 15.2 % (11.6-16.5) 01/17/22 08:50 Plt Count 410 X10^3/uL (150.0-450.0) 01/17/22 08:50 Plt Count Comment Adequate (ADEQUATE) 01/16/22 05:28 MPV 8.1 fL (7.4-11.0) 01/17/22 08:50 Neut % (Auto) 69.6 % (42.0-75.0) 01/17/22 08:50 Lymph % (Auto) 19.7 % (21.0-51.0) L 01/17/22 08:50 [place] % (Auto) 8.9 % (0.0-13.0) 01/17/22 08:50 Eos % (Auto) 1.2 % (0.9-2.9) 01/17/22 08:50 Baso % (Auto) 0.6 % (0.2-1.0) 01/17/22 08:50 Neut # (Auto) 7.2 x10^3/uL (2.2-4.8) H 01/17/22 08:50 Lymph # (Auto) 2.1 X10^3/uL (1.3-2.9) 01/17/22 08:50 [place] # (Auto) 0.9 x10^3/uL (0.3-0.8) H 01/17/22 08:50 Eos # (Auto) 0.1 x10^3/uL (0.0-0.2) 01/17/22 08:50 Baso # (Auto) 0.1 X10^3/uL (0.0-0.1) 01/17/22 08:50 Absolute Nucleated RBC 0.0 /100WBC 01/17/22 08:50 Total Counted 100 01/16/22 05:28 Neutrophils % (Manual) 69 % (39-76) 01/16/22 05:28 Lymphocytes % (Manual) 21 % (13-43) 01/16/22 05:28 Monocytes % (Manual) 6 % (4-9) 01/16/22 05:28 Eosinophils % (Manual) 4 % (0-6) 01/16/22 05:28 Plt Morphology Comment Normal (NORMAL) 01/16/22 05:28 RBC Morphology Normal (NORMAL) 01/16/22 05:28 Sodium 139 mmol/L (136-145) 01/17/22 08:50 Corrected Sodium 139 mmol/L (136-145) 01/17/22 08:50 Potassium 4.0 mmol/L (3.5-5.1) 01/17/22 08:50 Chloride 105 mmol/L (98-107) 01/17/22 08:50 Carbon Dioxide 28.6 mmol/L (21-32) 01/17/22 08:50 BUN 3 mg/dL (7-18) L 01/17/22 08:50 Creatinine 0.68 mg/dL (0.55-1.02) 01/17/22 08:50 Est GFR (MDRD) Af Amer > 60 (>60) 01/17/22 08:50 Est GFR (MDRD) Non-Af > 60 (>60) 01/17/22 08:50 Glucose 112 mg/dL (65-99) H 01/17/22 08:50 Calcium 8.4 mg/dL (8.5-10.1) L 01/17/22 08:50 Corrected Calcium 9.4 mg/dL (8.5-10.1) 01/17/22 08:50 Magnesium 1.7 mg/dL (1.7-2.9) 01/16/22 05:28 Total Bilirubin 0.40 mg/dL (0.2-1.0) 01/17/22 08:50 AST 28 Units/L (15-37) 01/17/22 08:50 ALT 22 Units/L (12-78) 01/17/22 08:50 Alkaline Phosphatase 107 Units/L (46-116) 01/17/22 08:50 Total Protein 6.9 g/dL (6.4-8.2) 01/17/22 08:50 Albumin 2.8 g/dL (3.4-5.0) L 01/17/22 08:50 Globulin 4.1 g/dL (2.5-4.5) 01/17/22 08:50 Albumin/Globulin Ratio 0.7 Ratio (1.1-2.1) L 01/17/22 08:50 Amylase 53 Units/L (25-115) 01/14/22 11:11 Lipase 222 Units/L (73-393) 01/14/22 11:11 Specimen Type Clean catch urine 01/14/22 11:46 Urine Color Dark yellow (YELLOW) 01/14/22 11:46 Urine Appearance Clear (CLEAR) 01/14/22 11:46 Urine pH 6.0 (5.0 - 8.0) 01/14/22 11:46 Ur Specific [place] 1.030 (1.000-1.030) 01/14/22 11:46 Urine Protein 2+ (NEGATIVE) 01/14/22 11:46 Urine Glucose (UA) Negative (NEGATIVE) 01/14/22 11:46 Urine Ketones 2+ (NEGATIVE) 01/14/22 11:46 Urine Blood 1+ (NEGATIVE) 01/14/22 11:46 Urine Nitrite Positive (NEGATIVE) 01/14/22 11:46 Urine Bilirubin 1+ (NEGATIVE) 01/14/22 11:46 Urine Urobilinogen 1+ (NORMAL) 01/14/22 11:46 Ur Leukocyte Esterase 3+ (NEGATIVE) 01/14/22 11:46 Urine RBC 0-2 /HPF (0-3) 01/14/22 11:46 Urine WBC 3-5 /HPF (0-5) 01/14/22 11:46 Ur Squamous Epith Cells Few /HPF (NEGATIVE) 01/14/22 11:46 Ur Transition Epith Cell Few /HPF (NEGATIVE) 01/14/22 11:46 Urine Bacteria Trace /HPF (NEGATIVE) 01/14/22 11:46 Hyaline Casts Few /LPF (NEGATIVE) 01/14/22 11:46 Urine Mucus Few /HPF (NEGATIVE) 01/14/22 11:46 Ur Culture Indicated? No/not indicated 01/14/22 11:46 Stool Description 15 grams 01/14/22 11:43 Stool Description 15 grams 01/14/22 11:43 Stl Occult Blood (IFOB) Positive (NEGATIVE) A 01/14/22 11:43 Stool for White Cells Positive (NEGATIVE) A 01/14/22 11:43 Stl C. diff Tox B Gene Negative (NEGATIVE) 01/14/22 11:43 Stl C. diff [id number] Presumptive negative (NEGATIVE) 01/14/22 11:43 Stool H. pylori Ag Negative (NEGATIVE) 01/14/22 11:43 SARS-CoV-2 (PCR) Positive (NEGATIVE) A 01/14/22 11:34 Cryptosporid parvum Ag Negative (NEGATIVE) 01/14/22 11:43 Giardia lamblia Ag Negative (NEGATIVE) 01/14/22 11:43 Influenza Type A (PCR) Negative (NEGATIVE) 01/14/22 11:34 Influenza Type B (PCR) Negative (NEGATIVE) 01/14/22 11:34 RSV (PCR) Negative (NEGATIVE) 01/14/22 11:34 Plan (1) Diverticulitis: Status: Acute Narrative Support Text: antibiotics:Cipro and Flagyl (2) Hypokalemia: Status: Acute Narrative Support Text: resolved (3) Dehydration: Status: Acute (4) Generalized weakness: Status: Acute (5) Nausea vomiting and diarrhea: Status: Acute (6) Urinary tract infection: Status: Acute (7) Lupus: Status: Acute (8) Hypertension: Status: Acute Narrative Support Text: start on norvasc.
[2022-01-18] MEDS: NS + KCL 40 MEQ/L 1,000 ML IV SCH ×2 (02:37→05:01)
[2022-01-18] MEDS: FLAGYL TAB 500 MG PO SCH (05:05)
[2022-01-18 06:19] LABS: BASOPHILS # (AUTO) 0.1 X10^3/uL (0.0-0.1); BASOPHILS % (AUTO) 0.4 % (0.2-1.0); EOSINOPHILS # (AUTO) 0.1 x10^3/uL (0.0-0.2); EOSINOPHILS % (AUTO) 0.5 % (0.9-2.9); HEMATOCRIT 39.4 % (36.0-47.0); HEMOGLOBIN 13.2 g/dL (12.0-16.0); LYMPHOCYTES % (AUTO) 13.6 % (21.0-51.0); MEAN CORPUSCULAR HEMOGLOBIN 27.5 pg (27.0-34.0); MEAN CORPUSCULAR HGB CONC 33.5 g/dL (33.0-35.0); MEAN PLATELET VOLUME 8.6 fL (7.4-11.0); MONOCYTES % (AUTO) 7.1 % (0.0-13.0); NEUTROPHILS # (AUTO) 11.5 x10^3/uL (2.2-4.8); NEUTROPHILS % (AUTO) 78.4 % (42.0-75.0); RED CELL DISTRIBUTION WIDTH 15.8 % (11.6-16.5); WHITE BLOOD COUNT 14.7 X10^3/uL (3.6-10.0)
[2022-01-18 06:24] LABS: ALANINE AMINOTRANSFERASE 20 Units/L (12-78); ALBUMIN 2.7 g/dL (3.4-5.0); ALKALINE PHOSPHATASE 99 Units/L (46-116); ASPARTATE AMINO TRANSFERASE 27 Units/L (15-37); BLOOD UREA NITROGEN 2 mg/dL (7-18); CALCIUM 8.4 mg/dL (8.5-10.1); CARBON DIOXIDE 27.2 mmol/L (21-32); CHLORIDE 104 mmol/L (98-107); COR CA(FOR HYPOALB) 9.4 mg/dL (8.5-10.1); CREATININE 0.71 mg/dL (0.55-1.02); SODIUM 138 mmol/L (136-145); TOTAL PROTEIN 6.7 g/dL (6.4-8.2); eGFR NON BLACK RACES > 60 (>60)
[2022-01-18 13:42] VITALS: BP 148/72
--- NOTE | 2022-01-19 12:16 | W.DIS.FURT ---
Summary of Discharge Discharge Summary of Date Date of Exam: 01/18/22 Admission Date Date of Admission: 01/14/22 Admission Diagnosis Hospital Course: Pt is a 66 y/o female with a PMH of Lupus and osteoporosis admitted for low grade diverticulitis shown on CTAP and acute cystitis. Her hospital/treatment course included:antibiotics ciprofloxacin and flagyl. Her stool cultures were negative and her urine culture was positive for E. coli, Proteus mirabilis that were sensitive to antibiotics. Pt responded well to treatments and her abdominal pain significantly improved. Her diet was advanced and she was able to tolerate po intake. Pt was noted to have some hypertension during hospital course and was started on norvasc 5mg. Pt was discharged in stable condition. Rx cipro and flagyl for patient to complete 14 day course. Instructed to follow up with pcp in 3-5 days. Vital Signs: Vital Signs (72 hours) 01/16/22 16:00 01/16/22 19:00 01/16/22 20:00 Temperature 97.5 F L 97.7 F Pulse Rate [Left Brachial] 105 H 103 H Respiratory Rate 20 22 Blood Pressure [Left Arm] 161/75 179/86 O2 Sat by Pulse Oximetry 99 99 Oxygen Delivery Method Room Air Room Air Room Air 01/17/22 00:00 01/17/22 03:58 01/17/22 07:00 Temperature 98.2 F 98.1 F Pulse Rate [Left Brachial] 90 97 H Respiratory Rate 20 22 Blood Pressure [Left Arm] 151/75 170/84 O2 Sat by Pulse Oximetry 96 98 Oxygen Delivery Method Room Air Room Air Room Air 01/17/22 08:00 01/17/22 12:00 01/17/22 16:00 Temperature 98.1 F 97.7 F 98.2 F Pulse Rate [Left Brachial] 80 80 90 Respiratory Rate 18 18 18 Blood Pressure [Left Arm] 164/75 133/72 151/73 O2 Sat by Pulse Oximetry 96 99 98 Oxygen Delivery Method Room Air Room Air Room Air 01/17/22 19:00 01/17/22 20:00 01/18/22 00:00 Temperature 98.1 F 98.1 F Pulse Rate [Left Brachial] 87 98 H Respiratory Rate 20 18 Blood Pressure [Left Arm] 159/73 173/84 O2 Sat by Pulse Oximetry 98 97 Oxygen Delivery Method Room Air Room Air Room Air 01/18/22 03:59 01/18/22 07:00 01/18/22 08:00 Temperature 98.0 F 98.0 F Pulse Rate [Left Brachial] 95 H 96 H Respiratory Rate 18 18 Blood Pressure [Left Arm] 170/77 148/72 O2 Sat by Pulse Oximetry 97 97 Oxygen Delivery Method Room Air Room Air Room Air Labs: Laboratory Last Values WBC 14.7 X10^3/uL (3.6-10.0) H 01/18/22 05:23 RBC 4.80 X10^6/uL (3.5-5.4) 01/18/22 05:23 Hgb 13.2 g/dL (12.0-16.0) 01/18/22 05:23 Hct 39.4 % (36.0-47.0) 01/18/22 05:23 MCV 82.0 fL (80.0-100.0) 01/18/22 05:23 MCH 27.5 pg (27.0-34.0) 01/18/22 05:23 MCHC 33.5 g/dL (33.0-35.0) 01/18/22 05:23 RDW 15.8 % (11.6-16.5) 01/18/22 05:23 Plt Count 443 X10^3/uL (150.0-450.0) 01/18/22 05:23 Plt Count Comment Adequate (ADEQUATE) 01/16/22 05:28 MPV 8.6 fL (7.4-11.0) 01/18/22 05:23 Neut % (Auto) 78.4 % (42.0-75.0) H 01/18/22 05:23 Lymph % (Auto) 13.6 % (21.0-51.0) L 01/18/22 05:23 [place] % (Auto) 7.1 % (0.0-13.0) 01/18/22 05:23 Eos % (Auto) 0.5 % (0.9-2.9) L 01/18/22 05:23 Baso % (Auto) 0.4 % (0.2-1.0) 01/18/22 05:23 Neut # (Auto) 11.5 x10^3/uL (2.2-4.8) H 01/18/22 05:23 Lymph # (Auto) 2.0 X10^3/uL (1.3-2.9) 01/18/22 05:23 [place] # (Auto) 1.0 x10^3/uL (0.3-0.8) H 01/18/22 05:23 Eos # (Auto) 0.1 x10^3/uL (0.0-0.2) 01/18/22 05:23 Baso # (Auto) 0.1 X10^3/uL (0.0-0.1) 01/18/22 05:23 Absolute Nucleated RBC 0.0 /100WBC 01/18/22 05:23 Total Counted 100 01/16/22 05:28 Neutrophils % (Manual) 69 % (39-76) 01/16/22 05:28 Lymphocytes % (Manual) 21 % (13-43) 01/16/22 05:28 Monocytes % (Manual) 6 % (4-9) 01/16/22 05:28 Eosinophils % (Manual) 4 % (0-6) 01/16/22 05:28 Plt Morphology Comment Normal (NORMAL) 01/16/22 05:28 RBC Morphology Normal (NORMAL) 01/16/22 05:28 Sodium 138 mmol/L (136-145) 01/18/22 05:23 Corrected Sodium TNP 01/18/22 05:23 Potassium 4.0 mmol/L (3.5-5.1) 01/18/22 05:23 Chloride 104 mmol/L (98-107) 01/18/22 05:23 Carbon Dioxide 27.2 mmol/L (21-32) 01/18/22 05:23 BUN 2 mg/dL (7-18) L 01/18/22 05:23 Creatinine 0.71 mg/dL (0.55-1.02) 01/18/22 05:23 Est GFR (MDRD) Af Amer > 60 (>60) 01/18/22 05:23 Est GFR (MDRD) Non-Af > 60 (>60) 01/18/22 05:23 Glucose 109 mg/dL (65-99) H 01/18/22 05:23 Calcium 8.4 mg/dL (8.5-10.1) L 01/18/22 05:23 Corrected Calcium 9.4 mg/dL (8.5-10.1) 01/18/22 05:23 Magnesium 1.7 mg/dL (1.7-2.9) 01/16/22 05:28 Total Bilirubin 0.40 mg/dL (0.2-1.0) 01/18/22 05:23 AST 27 Units/L (15-37) 01/18/22 05:23 ALT 20 Units/L (12-78) 01/18/22 05:23 Alkaline Phosphatase 99 Units/L (46-116) 01/18/22 05:23 Total Protein 6.7 g/dL (6.4-8.2) 01/18/22 05:23 Albumin 2.7 g/dL (3.4-5.0) L 01/18/22 05:23 Globulin 4.0 g/dL (2.5-4.5) 01/18/22 05:23 Albumin/Globulin Ratio 0.7 Ratio (1.1-2.1) L 01/18/22 05:23 Amylase 53 Units/L (25-115) 01/14/22 11:11 Lipase 222 Units/L (73-393) 01/14/22 11:11 Specimen Type Clean catch urine 01/14/22 11:46 Urine Color Dark yellow (YELLOW) 01/14/22 11:46 Urine Appearance Clear (CLEAR) 01/14/22 11:46 Urine pH 6.0 (5.0 - 8.0) 01/14/22 11:46 Ur Specific [place] 1.030 (1.000-1.030) 01/14/22 11:46 Urine Protein 2+ (NEGATIVE) 01/14/22 11:46 Urine Glucose (UA) Negative (NEGATIVE) 01/14/22 11:46 Urine Ketones 2+ (NEGATIVE) 01/14/22 11:46 Urine Blood 1+ (NEGATIVE) 01/14/22 11:46 Urine Nitrite Positive (NEGATIVE) 01/14/22 11:46 Urine Bilirubin 1+ (NEGATIVE) 01/14/22 11:46 Urine Urobilinogen 1+ (NORMAL) 01/14/22 11:46 Ur Leukocyte Esterase 3+ (NEGATIVE) 01/14/22 11:46 Urine RBC 0-2 /HPF (0-3) 01/14/22 11:46 Urine WBC 3-5 /HPF (0-5) 01/14/22 11:46 Ur Squamous Epith Cells Few /HPF (NEGATIVE) 01/14/22 11:46 Ur Transition Epith Cell Few /HPF (NEGATIVE) 01/14/22 11:46 Urine Bacteria Trace /HPF (NEGATIVE) 01/14/22 11:46 Hyaline Casts Few /LPF (NEGATIVE) 01/14/22 11:46 Urine Mucus Few /HPF (NEGATIVE) 01/14/22 11:46 Ur Culture Indicated? No/not indicated 01/14/22 11:46 Stool Description 15 grams 01/14/22 11:43 Stool Description 15 grams 01/14/22 11:43 Stl Occult Blood (IFOB) Positive (NEGATIVE) A 01/14/22 11:43 Stool for White Cells Positive (NEGATIVE) A 01/14/22 11:43 Stl C. diff Tox B Gene Negative (NEGATIVE) 01/14/22 11:43 Stl C. diff [id number] Presumptive negative (NEGATIVE) 01/14/22 11:43 Stool H. pylori Ag Negative (NEGATIVE) 01/14/22 11:43 SARS-CoV-2 (PCR) Positive (NEGATIVE) A 01/14/22 11:34 Cryptosporid parvum Ag Negative (NEGATIVE) 01/14/22 11:43 Giardia lamblia Ag Negative (NEGATIVE) 01/14/22 11:43 Influenza Type A (PCR) Negative (NEGATIVE) 01/14/22 11:34 Influenza Type B (PCR) Negative (NEGATIVE) 01/14/22 11:34 RSV (PCR) Negative (NEGATIVE) 01/14/22 11:34 Reason For Visit: DIVERTICULITIS, HYPOKALEMIA,UTI, INFECTIVE Discharge Date Discharge Date: 01/18/22 Discharge Diagnosis All Active Problems (Updated 01/17/22 @ 19:47 by Marciano Anaya) Hypertension (Acute) Urinary tract infection (Acute) Hypokalemia (Acute) Lupus (Acute) Nausea vomiting and diarrhea (Acute) Generalized weakness (Acute) Dehydration (Acute) Diverticulitis (Acute) Plan of Treatment: Continue with present treatment and follow up plan. Pt is to keep follow up appointment as instructed and take medications as ordered. Discharge Medications Discharge Medications: codeine Allergy (Verified 01/14/22 10:58) CONTINUE taking the following medications cholecalciferol (vitamin D3) 25 mcg (1,000 unit) tablet 25 mcg PO DAILY 01/14/22 [History] dicyclomine 10 mg capsule 10 mg PO Q4H PRN 01/14/22 [History] hydroxychloroquine 200 mg tablet 300 mg PO DAILY 01/14/22 [History] ibandronate 150 mg tablet See Rx Instructions .Route .COMPLEX 01/14/22 [History] meloxicam 15 mg tablet 15 mg PO DAILY 01/14/22 [History] metronidazole 500 mg tablet 500 mg PO BID 01/14/22 [History] ondansetron 8 mg disintegrating tablet 8 mg PO Q8H PRN 01/14/22 [History] tirzepatide 2.5 mg/0.5 mL subcutaneous pen injector (Mounjaro) See Rx Instructions .Route .COMPLEX 01/14/22 [History] New Prescriptions ciprofloxacin HCl 500 mg tablet (Cipro) 500 mg PO BID 4 days #8 tabs 01/18/22 [Rx] metronidazole 500 mg tablet 500 mg PO TID 4 days #12 tabs 01/18/22 [Rx] ondansetron 4 mg disintegrating tablet 4 mg PO Q6H PRN #30 tabs 01/18/22 [Rx] Discharge Disposition Discharge Disposition: Home Discharge Condition: Stable Discharge Plan Discharge Plan Hospital Course: Pt is a 66 y/o female with a PMH of Lupus and osteoporosis admitted for low grade diverticulitis shown on CTAP and acute cystitis. Her hospital/treatment course included:antibiotics ciprofloxacin and flagyl. Her stool cultures were negative and her urine culture was positive for E. coli, Proteus mirabilis that were sensitive to antibiotics. Pt responded well to treatments and her abdominal pain significantly improved. Her diet was advanced and she was able to tolerate po intake. Pt was noted to have some hypertension during hospital course and was started on norvasc 5mg. Pt was discharged in stable condition. Rx cipro and flagyl for patient to complete 14 day course. Instructed to follow up with pcp in 3-5 days. Patient Disposition: 01 HOME, SELF-CARE Condition: Stable Health Concerns: Post Hospitalization: new medications and changes needed to prevent readmission or further decline. Pt educated and given instructions on all concerns. Care Plan Goals: Problem: Pain/Alteration in Comfort Goal: Improve/ Resolve Pain; Achieve Pain Tolerance Instructions: Take pain medications as prescribed. Contact your primary care provider if your pain is unrelieved or worsens. Follow up with primary care provider as directed. Plan of Treatment: Continue with present treatment and follow up plan. Pt is to keep follow up appointment as instructed and take medications as ordered. Prescriptions: New ciprofloxacin HCl [Cipro] 500 mg Tablet 500 mg PO BID 4 Days Qty: 8 0RF metronidazole 500 mg Tablet 500 mg PO TID 4 Days Qty: 12 0RF ondansetron 4 mg Tablet,Disintegrating 4 mg PO Q6H PRNQty: 30 0RF Continued meloxicam 15 mg tablet 15 mg PO DAILY Label Comments: TAKE 1 TABLET BY MOUTH EVERY DAY metronidazole 500 mg tablet 500 mg PO BID Label Comments: [NO ORIGINAL SIG] ondansetron 8 mg tablet,disintegrating 8 mg PO Q8H PRN Label Comments: [NO ORIGINAL SIG] hydroxychloroquine 200 mg tablet 300 mg PO DAILY Label Comments: TAKE 1 AND 1/2 TABLET BY MOUTH DAILY dicyclomine 10 mg capsule 10 mg PO Q4H PRN Label Comments: [NO ORIGINAL SIG] ibandronate 150 mg tablet See Rx Instructions .ROUTE .COMPLEX Label Comments: PLEASE SEE ATTACHED FOR DETAILED DIRECTIONS Rx Instructions: TAKE DIRECTED cholecalciferol (vitamin D3) 25 mcg (1,000 unit) tablet 25 mcg PO DAILY Label Comments: TAKE 3 TABLETS BY MOUTH EVERY DAY Mounjaro 2.5 mg/0.5 mL pen injector See Rx Instructions .ROUTE .COMPLEX Label Comments: inject 2.5mg SUBCUTANEOUSLY EVERY WEEK Rx Instructions: TAKE DIRECTED Orders to Discharge Patient Discharge Orders: Discharge (Routine); Ordered 01/18/22 Ordered By: Marciano Anaya Follow ups/Referrals Follow ups/Referrals: SHANNAN FRANKLIN [Primary Care Provider] - (Call office and schedule a follow up for 1 week from today.) Instructions Instructions: Diverticulitis, [id number], Hypokalemia, Nausea and Vomiting, Adult, [id number], Urinary Tract Infection, Adult, [id number], Hypertension, Adult, [id number] Activity Restrictions/Additional Instructions: Education on diverticulitis diet Follow up with PCP Stand Alone Forms: Precautions for COVID19, [facility], Patient Portal, Social Distancing Patient Education Addl Reference Links: Diverticulitis [email or web address] [email or web address] GenderCode.dn=Female&age.v.v=[email or web address]&age.v.u=a&performer=PROV&informationRecipient=PA T&[email or web address]=en&mainSearch Criteria.v.dn=[email or web address]
== END 2022-01-18 11:20 | disposition home or self-care (01) ==
LOC: MED/SURG 10:45 → ER 10:45 → MED/SURG 14:33
PROVIDERS: ADMIT Family Medicine; ATTEND Family Medicine
DX: N39.0 Urinary tract infection, site not specified; E87.6 Hypokalemia; R11.2 Nausea with vomiting, unspecified; R19.7 Diarrhea, unspecified; M32.9 Systemic lupus erythematosus, unspecified; M81.0 Age-related osteoporosis without current pathological fracture; I10 Essential (primary) hypertension; K57.30 Diverticulosis of large intestine without perforation or abscess without bleeding; E86.0 Dehydration; R94.31 Abnormal electrocardiogram [ECG] [EKG]; R53.1 Weakness; B96.29 Other Escherichia coli [E. coli] as the cause of diseases classified elsewhere; K44.9 Diaphragmatic hernia without obstruction or gangrene; B96.4 Proteus (mirabilis) (morganii) as the cause of diseases classified elsewhere; U07.1 COVID-19